=== PATIENT | female | born 1980 | race Caucasian/White ===

== ENCOUNTER 2022-11-02 22:51 | Emergency (ER) | payer OTHER ==
[2022-11-02 23:08] VITALS: BP 142/100; PULSE 98; RESP 17; TEMP 97.6; BMI 27.4
== END 2022-11-03 03:14 | disposition left against medical advice (07) ==
LOC: JER 22:51
DX: Z01.89 Encounter for other specified special examinations (principal)
CPT/HCPCS: 93005; 93010; 99283-25